=== PATIENT | male | born 1990 | race Caucasian/White ===

== ENCOUNTER 2017-05-06 00:26 | Emergency (ER) | payer SELFPAY ==
[2017-05-06] MEDS: HYDROCODONE/APAP (5/325) TAB PO (01:30)
[2017-05-06] MEDS: SILVER SULFADIAZINE 1% 25 GM CR TOP (01:31)
== END 2017-05-06 01:55 | disposition home or self-care (01) ==
LOC: FTE 00:26
DX: T21.24XA Burn of second degree of lower back, initial encounter (principal); F17.210 Nicotine dependence, cigarettes, uncomplicated; X12.XXXA Contact with other hot fluids, initial encounter; Y92.511 Restaurant or cafe as the place of occurrence of the external cause
CPT/HCPCS: 16000; 99283-25